=== PATIENT | female | born 1950 | race Caucasian/White ===

== ENCOUNTER 2017-03-24 08:02 | Outpatient (CLI) | payer MEDICARE ==
--- NOTE | 2017-03-24 09:44 | Magnetic Resonance Report ---
MRI BRAIN WITHOUT CONTRAST: 03/24/17 08:02:00 CLINICAL: Headache and memory loss. TECHNIQUE: Axial diffusion, T1, T2, FLAIR, gradient echo T2*, coronal FLAIR and sagittal T1 sequences on a 1.5 Mindy magnet. FINDINGS: The ventricles and sulci are normal for age. No restricted diffusion. No mass or mass effect. No hemorrhage, edema or extra-axial collection. Normal pituitary and optic chiasm. The brainstem and cerebellum are normal. Intact vascular flow voids. Normal sinuses. The orbits, and soft tissues are normal. Normal calvarium and skull base. IMPRESSION: Normal study.
== END 2017-03-24 08:03 | disposition home or self-care (01) ==
LOC: MRI 08:02
PROVIDERS: ATTEND Psychiatry & Neurology Neurology
DX: R41.3 Other amnesia (principal); R51 Headache; I10 Essential (primary) hypertension
CPT/HCPCS: 70551

== ENCOUNTER 2017-09-05 21:23 | Emergency (ER) | payer OTHER, MEDICARE ==
--- NOTE | 2017-09-05 23:06 | Cat Scan Report ---
FINAL REPORT EXAM: CT HEAD/BRAIN WO CON HISTORY: headache COMPARISON: MRI the brain from March 2017. Images are available for review. Report is not available. TECHNIQUE: Axial images obtained skull base through vertex. FINDINGS: No acute intracranial hemorrhage, midline shift or pathologic extra axial fluid collection. Ventricles and cisterns are normal in size and configuration for the patient's age. Schilling-white differentiation preserved. Calvarium grossly intact. Prior cataract surgery. Mild calcification along the carotid siphons. Remote fracture of the medial wall the right orbital rim. Mild mucosal thickening the visualized paranasal sinuses. Mastoid air cells are clear. IMPRESSION: No grossly acute intracranial abnormality.
[2017-09-06] MEDS ORDERED: NORCO 5/325 PO ONE (00:39)
[2017-09-06] MEDS ORDERED: NORCO 5/325 ONE (00:44)
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
[2017-09-06] MEDS ORDERED: ZOFRAN ODT PO ONE (01:08)
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
[2017-09-06 02:56] VITALS: BP 138/70
== END 2017-09-06 02:57 | disposition home or self-care (01) ==
LOC: ED 21:23
DX: G89.11 Acute pain due to trauma (principal); R51 Headache; R07.9 Chest pain, unspecified; R06.02 Shortness of breath; R11.0 Nausea; M79.601 Pain in right arm; E11.9 Type 2 diabetes mellitus without complications; V89.2XXA Person injured in unspecified motor-vehicle accident, traffic, initial encounter; Y93.89 Activity, other specified; Y99.8 Other external cause status; Y92.410 Unspecified street and highway as the place of occurrence of the external cause
CPT/HCPCS: 70450; 71046; 93005; 93010

== ENCOUNTER 2017-10-15 14:46 | Observation (INO) | payer MEDICARE ==
[2017-10-15] MEDS ORDERED: ASPIRIN PO ONE (15:16)
[2017-10-15 15:53] LABS: Basophils % (Auto) 0.3 % (0.0-1.8); Eosinophils # (Auto) 0.1 K/mm3 (0.0-0.4); Eosinophils % (Auto) 1.7 % (0.0-4.3); Hematocrit 42.6 % (30.3-42.9); Hemoglobin 14.5 gm/dl (10.1-14.3); Lymphocytes # (Auto) 1.8 K/mm3 (1.2-5.4); Lymphocytes % (Auto) 31.9 % (13.4-35.0); Mean Corpuscular HGB Conc 34 % (30-34); Mean Corpuscular Hemoglobin 34 pg (28-32); Mean Corpuscular Volume 101 fl (79-97); Monocytes # (Auto) 0.4 K/mm3 (0.0-0.8); Monocytes % (Auto) 7.6 % (0.0-7.3); Platelet Count 188 K/mm3 (140-440); Red Blood Count 4.22 M/mm3 (3.65-5.03); Red Cell Distribution Width 13.1 % (13.2-15.2)
[2017-10-15 16:00] LABS: BUN/Creatinine Ratio 22; Blood Urea Nitrogen 11 mg/dL (7-17); Calcium 9.3 mg/dL (8.4-10.2); Hemolysis Index 5
--- NOTE | 2017-10-15 17:12 | Emergency Department Report ---
ED Chest Pain HPI - General Chief Complaint: Chest Pain Stated Complaint: CHEST PAIN Time Seen by Provider: 10/15/17 16:21 Source: patient Mode of arrival: Ambulatory Limitations: No Limitations - History of Present Illness Initial Comments: Patient is 67 years old female with history of hypertension. Patient presented to the ER complaining of substernal chest pain, pressure does not radiate. Patient stated that pain started this morning. Patient denied any shortness of breath. No history of carotid artery disease before. Chin denied any cough or fever. MD Complaint: chest pain -: This morning Onset: during rest Pain Location: substernal Pain Radiation: none Severity scale (0 -10): 6 Quality: pressure Improves With: nothing Worsens With: nothing - Related Data Home Medications Medication Instructions Recorded Confirmed Last Taken Losartan [Cozaar] 50 mg PO QDAY 05/29/13 08/21/13 Unknown Previous Rx's Medication Instructions Recorded Last Taken Type Acyclovir [Zovirax] 800 mg PO Q12H #35 tab 08/21/13 Unknown Rx HYDROcodone/APAP 7.5-325 [[place] 1 each PO Q6HR PRN #20 tablet 08/21/13 Unknown Rx 7.5/325 mg] Acetaminophen/Codeine [Tylenol 1 tab PO Q6H PRN #12 tab 09/06/17 Unknown Rx /Codeine # 3 tab] Allergies Allergy/AdvReac Type Severity Reaction Status Date / Time No Known Allergies Allergy Verified 08/21/13 11:27 Heart Score - HEART Score History: Moderately suspicious EKG: Non-specific Age: > 65 Risk factors: 1-2 risk factors Troponin: < normal limit HEART Score: 5 - Critical Actions Critical Actions: 4-6 pts:12-16.6% risk of adverse cardiac event. Should be admitted ED Review of Systems ROS: Stated complaint: CHEST PAIN Other details as noted in HPI Comment: All other systems reviewed and negative Constitutional: denies: chills, fever Respiratory: denies: cough, orthopnea, shortness of breath, SOB with exertion, SOB at rest, wheezing Cardiovascular: chest pain. denies: palpitations, dyspnea on exertion, orthopnea, edema, syncope, paroxysmal nocturnal dyspnea Gastrointestinal: denies: abdominal pain, nausea, vomiting, diarrhea, constipation, hematemesis, hematochezia Genitourinary: denies: urgency, dysuria, frequency, hematuria Neurological: denies: headache, weakness, numbness, paresthesias, confusion ED Past Medical Hx - Past Medical History Hx Hypertension: Yes Hx Diabetes: No - Social History Smoking Status: Never Smoker Substance Use Type: None - Medications Home Medications: Home Medications Medication Instructions Recorded Confirmed Last Taken Type Losartan [Cozaar] 50 mg PO QDAY 05/29/13 08/21/13 Unknown History Acyclovir [Zovirax] 800 mg PO Q12H #35 tab 08/21/13 Unknown Rx HYDROcodone/APAP 7.5-325 [[place] 1 each PO Q6HR PRN #20 tablet 08/21/13 Unknown Rx 7.5/325 mg] Acetaminophen/Codeine [Tylenol 1 tab PO Q6H PRN #12 tab 09/06/17 Unknown Rx /Codeine # 3 tab] ED Physical Exam - General Limitations: No Limitations General appearance: alert, in no apparent distress - Head Head exam: Present: atraumatic, normocephalic, normal inspection - Eye Eye exam: Present: normal appearance, PERRL - ENT ENT exam: Present: normal exam, normal orophraynx, mucous membranes moist - Neck Neck exam: Present: normal inspection, full ROM. Absent: tenderness, meningismus - Respiratory Respiratory exam: Present: normal lung sounds bilaterally. Absent: respiratory distress, wheezes, rales, rhonchi, chest wall tenderness, accessory muscle use, decreased breath sounds, prolonged expiratory - Cardiovascular Cardiovascular Exam: Present: regular rate, normal rhythm, normal heart sounds - GI/Abdominal GI/Abdominal exam: Present: soft, normal bowel sounds. Absent: distended, tenderness, guarding, rebound, rigid, organomegaly, mass, bruit, pulsatile mass - Extremities Exam Extremities exam: Present: normal inspection, full ROM, normal capillary refill - Back Exam Back exam: Present: normal inspection, full ROM. Absent: tenderness, CVA tenderness (R), CVA tenderness (L), muscle spasm, paraspinal tenderness, vertebral tenderness, rash noted - Neurological Exam Neurological exam: Present: alert, oriented X3, CN II-XII intact, normal gait - Skin Skin exam: Present: warm, intact, normal color ED Course Vital Signs 10/15/17 10/15/17 10/15/17 14:51 16:05 16:07 Temperature 98.6 F 98.2 F Pulse Rate 68 60 Respiratory 16 17 17 Rate Blood Pressure 117/63 Blood Pressure 110/63 [Left] O2 Sat by Pulse 97 100 100 Oximetry ED Medical Decision Making - Lab Data Result diagrams: 10/15/17 15:28 10/15/17 15:28 - EKG Data -: EKG Interpreted by Me EKG shows normal: sinus rhythm Rate: normal - EKG Data Interpretation: no acute changes - Radiology Data Radiology results: image reviewed interpreted by me: Chest x-ray is unremarkable for acute findings. Critical care attestation.: If time is entered above; I have spent that time in minutes in the direct care of this critically ill patient, excluding procedure time. ED Disposition Clinical Impression: Chest pain Disposition: DC-09 OP ADMIT IP TO THIS HOSP Is pt being admited?: Yes Condition: Stable Instructions: Chest Pain (ED) Referrals: PRIMARY CARE, [Primary Care Provider] - 3-5 Days
--- NOTE | 2017-10-15 17:51 | XRay Report ---
FINAL REPORT EXAM: XR CHEST 1V AP HISTORY: chest pain TECHNIQUE: AP portable view of the chest. PRIORS: 09/05/2017 FINDINGS: The cardiomediastinal silhouette appears normal. The lungs are clear. The bones and soft tissues are unremarkable. IMPRESSION: No evidence of acute cardiopulmonary disease.
[2017-10-15] MEDS ORDERED: ASPIRIN ONE (19:04)
[2017-10-15] MEDS ORDERED: PERCOCET 5/325 PO PRN (19:59)
[2017-10-15] MEDS ORDERED: DILAUDID IV PRN (19:59)
[2017-10-15] MEDS ORDERED: MORPHINE IV PRN (19:59)
[2017-10-15] MEDS ORDERED: TYLENOL PO PRN (19:59)
[2017-10-15] MEDS ORDERED: SODIUM CHLORIDE FLUSH SYRINGE 10 ML IV PRN (19:59)
[2017-10-15] MEDS ORDERED: ZOFRAN IV PRN (19:59)
[2017-10-15] MEDS ORDERED: AMBIEN PO PRN (19:59)
[2017-10-15] MEDS ORDERED: NON-FORMULARY (Losartan [Cozaar] 100 MG) PO SCH (20:00)
--- NOTE | 2017-10-15 20:09 | History and Physical Report ---
History of Present Illness Date of examination: 10/15/17 Date of admission: 10/15/17 17:17 Chief complaint: Chief complaint: Left-sided chest pain since a.m.--sudden onset. History of present illness: History of Present Illness: 67-year-old female with history of hypertension comes in for retrosternal chest pain off and on since the morning. Sudden onset. No place to left-sided chest. No radiation. No shortness of breath. No diaphoresis. No recent travel. Chest pain is about 6 on a scale of 1-10 dull in character. No exacerbating or relieving factors. No palpitations. Intermittent in nature. Past Medical History Hx Hypertension: Yes Hx Diabetes: No Social History Smoking Status: Never Smoker Substance Use Type: None Surgical history None Family history Hypertension Review of Systems ROS: Stated complaint: CHEST PAIN Other details as noted in HPI Comment: All other systems reviewed and negative Constitutional: denies: chills, fever Respiratory: denies: cough, orthopnea, shortness of breath, SOB with exertion, SOB at rest, wheezing Cardiovascular: chest pain. denies: palpitations, dyspnea on exertion, orthopnea, edema, syncope, paroxysmal nocturnal dyspnea Gastrointestinal: denies: abdominal pain, nausea, vomiting, diarrhea, constipation, hematemesis, hematochezia Genitourinary: denies: urgency, dysuria, frequency, hematuria Neurological: denies: headache, weakness, numbness, paresthesias, confusion 14 point review of systems done--- otherwise negative - Medications Home Medications: Home Medications Medication Instructions Recorded Confirmed Last Taken Type Losartan [Cozaar] 50 mg PO QDAY 05/29/13 08/21/13 Unknown History Acyclovir [Zovirax] 800 mg PO Q12H #35 tab 08/21/13 Unknown Rx HYDROcodone/APAP 7.5-325 [[place] 1 each PO Q6HR PRN #20 tablet 08/21/13 Unknown Rx 7.5/325 mg] Acetaminophen/Codeine [Tylenol 1 tab PO Q6H PRN #12 tab 09/06/17 Unknown Rx /Codeine # 3 tab] Medications and Allergies Allergies Allergy/AdvReac Type Severity Reaction Status Date / Time No Known Allergies Allergy Verified 08/21/13 11:27 Home Medications Medication Instructions Recorded Confirmed Last Taken Type Cetirizine HCl [Allergy Relief] 10 mg PO DAILY 10/15/17 10/15/17 Unknown History Losartan [Cozaar] 100 mg PO QDAY 10/15/17 10/15/17 10/15/17 History Active Meds: Active Medications Acetaminophen (Tylenol) 650 mg PO Q4H PRN PRN Reason: Pain MILD(1-3)/Fever >100.5/GARCIA Famotidine (Pepcid) 20 mg PO BID CHER Hydromorphone HCl (Dilaudid) 0.5 mg IV Q3H PRN PRN Reason: Pain , Severe (7-10) Miscellaneous Medication (Cetirizine Hcl [Allergy Relief]) 10 mg PO DAILY CHER Miscellaneous Medication (Losartan [Cozaar]) 100 mg PO QDAY CHER Morphine Sulfate (Morphine) 2 mg IV Q4H PRN PRN Reason: Pain, Moderate (4-6) Ondansetron HCl (Zofran) 4 mg IV Q8H PRN PRN Reason: Nausea And Vomiting Oxycodone/Acetaminophen (Percocet 5/325) 1 tab PO Q6H PRN PRN Reason: Pain, Moderate (4-6) Sodium Chloride (Sodium Chloride Flush Syringe 10 Ml) 10 ml IV BID CHER Sodium Chloride (Sodium Chloride Flush Syringe 10 Ml) 10 ml IV PRN PRN PRN Reason: LINE FLUSH Zolpidem Tartrate (Ambien) 5 mg PO QHS PRN PRN Reason: Insomnia Exam - Constitutional Vitals: Temp Pulse Resp BP Pulse Ox 97.9 F 58 L 22 91/67 98 10/15/17 19:15 10/15/17 19:15 10/15/17 19:15 10/15/17 19:15 10/15/17 19:15 Results - Labs CBC & Chem 7: 10/15/17 15:28 10/15/17 15:28 Labs: Laboratory Last Values WBC 5.8 K/mm3 (4.5-11.0) 10/15/17 15:28 RBC 4.22 M/mm3 (3.65-5.03) 10/15/17 15:28 Hgb 14.5 gm/dl (10.1-14.3) H 10/15/17 15:28 Hct 42.6 % (30.3-42.9) 10/15/17 15:28 MCV 101 fl (79-97) H 10/15/17 15: MCH 34 pg (28-32) H 10/15/17 15: MCHC 34 % (30-34) 10/15/17 15: RDW 13.1 % (13.2-15.2) L 10/15/17 15: Plt Count 188 K/mm3 (140-440) 10/15/17 15: Lymph % (Auto) 31.9 % (13.4-35.0) 10/15/17 15:28 [place] % (Auto) 7.6 % (0.0-7.3) H 10/15/17 15: Eos % (Auto) 1.7 % (0.0-4.3) 10/15/17: Baso % (Auto) 0.3 % (0.0-1.8) 10/15/17 15: Lymph # 1.8 K/mm3 (1.2-5.4) 10/15/17 15: [place] # 0.4 K/mm3 (0.0-0.8) 10/15/17 15: Eos # 0.1 K/mm3 (0.0-0.4) 10/15/17 15: Baso # 0.0 K/mm3 (0.0-0.1) 10/15/17 15: Seg Neutrophils % 58.5 % (40.0-70.0) 10/15/17 15: Seg Neutrophils # 3.4 K/mm3 (1.8-7.7) 10/15/17 15: Sodium 141 mmol/L (137-145) 10/15/17 15:28 Potassium 3.8 mmol/L (3.6-5.0) 10/15/17 15: Chloride 101.7 mmol/L (98-107) 10/15/17 15: Carbon Dioxide 30 mmol/L (22-30) 10/15/17 15: Anion Gap 13 mmol/L 10/15/17 15:28 BUN 11 mg/dL (7-17) 10/15/17 15:28 Creatinine 0.5 mg/dL (0.7-1.2) L 10/15/17 15:28 Estimated GFR > 60 ml/min 10/15/17 15:28 BUN/Creatinine Ratio 22 % 10/15/17 15:28 Glucose 100 mg/dL (65-100) 10/15/17 15:28 Calcium 9.3 mg/dL (8.4-10.2) 10/15/17 15:28 Troponin T < 0.010 ng/mL (0.00-0.029) 10/15/17 19:01 Short CBC 10/15/17 Range/Units 15:28 WBC 5.8 (4.5-11.0) K/mm3 Hgb 14.5 H (10.1-14.3) gm/dl Hct 42.6 (30.3-42.9) % Plt Count 188 (140-440) K/mm3 BMP 10/15/17 15:28 Sodium 141 Potassium 3.8 Chloride 101.7 Carbon Dioxide 30 BUN 11 Creatinine 0.5 L Glucose 100 Calcium 9.3 Cardiac Enzymes 10/15/17 10/15/17 Range/Units 15:28 19:01 Troponin T < 0.010 < 0.010 (0.00-0.029) ng/mL - Imaging and Cardiology EKG: report reviewed (sinus rhythm heart rate is [address]-T wave changes EKG interpreted by me) Assessment and Plan Advance Directives: Yes (full code) VTE prophylaxis?: Chemical Plan of care discussed with patient/family: Yes - Patient Problems (1) Acute coronary syndrome Current Visit: Yes Status: Acute Plan to address problem: Patient did get serial troponins echocardiogram and Lexiscan in the morning. Cardiology consult requested. (2) Hypertension Current Visit: Yes Status: Chronic Qualifiers: Hypertension type: essential hypertension Qualified Code(s): I10 - Essential (primary) hypertension Plan to address problem: Continue losartan (3) DVT prophylaxis Current Visit: Yes Status: Acute Plan to address problem: Continue heparin subcutaneously 5000 units every 12
[2017-10-15] MEDS: PEPCID PO SCH (22:00)
[2017-10-15] MEDS: SODIUM CHLORIDE FLUSH SYRINGE 10 ML IV SCH (22:00)
[2017-10-16 02:43] LABS: Basophils % (Auto) 0.4 % (0.0-1.8); Eosinophils # (Auto) 0.2 K/mm3 (0.0-0.4); Eosinophils % (Auto) 2.4 % (0.0-4.3); Hematocrit 39.1 % (30.3-42.9); Hemoglobin 13.7 gm/dl (10.1-14.3); Lymphocytes # (Auto) 2.5 K/mm3 (1.2-5.4); Lymphocytes % (Auto) 37.5 % (13.4-35.0); Mean Corpuscular HGB Conc 35 % (30-34); Mean Corpuscular Hemoglobin 35 pg (28-32); Mean Corpuscular Volume 101 fl (79-97); Monocytes # (Auto) 0.6 K/mm3 (0.0-0.8); Monocytes % (Auto) 9.2 % (0.0-7.3); Platelet Count 158 K/mm3 (140-440); Red Blood Count 3.88 M/mm3 (3.65-5.03); Red Cell Distribution Width 13.2 % (13.2-15.2)
[2017-10-16 03:34] LABS: Alanine Aminotransferase 27 units/L (7-56); BUN/Creatinine Ratio 33; Blood Urea Nitrogen 13 mg/dL (7-17); Calcium 8.7 mg/dL (8.4-10.2); Hemolysis Index 4
[2017-10-16] MEDS ORDERED: LEXISCAN IV ONE ×2 (08:44→08:46)
[2017-10-16] MEDS ORDERED: CLARITIN PO SCH (10:00)
[2017-10-16] MEDS ORDERED: NON-FORMULARY (Cetirizine Hcl [Allergy Relief] 10 MG) PO SCH (10:00)
[2017-10-16] MEDS ORDERED: COZAAR PO SCH (10:00)
[2017-10-16] MEDS: PEPCID PO SCH (10:43)
[2017-10-16] MEDS: SODIUM CHLORIDE FLUSH SYRINGE 10 ML IV SCH (10:43)
--- NOTE | 2017-10-16 10:50 | Consultation ---
History of Present Illness Consult date: 10/16/17 Consult reason: chest pain History of present illness: Patient is presenting with atypical chest pain. She has a history of hypertension. ECG showing no ischemic changes and troponins are negative. MPI today showing no ischemia with LVEF 82%. N events recorded on tele. CXR is normal. BP 117/62 on admission. Past History Past Medical History: hypertension Past Surgical History: No surgical history Social history: no significant social history Family history: no significant family history Medications and Allergies Allergies Allergy/AdvReac Type Severity Reaction Status Date / Time No Known Allergies Allergy Verified 08/21/13 11:27 Home Medications Medication Instructions Recorded Confirmed Last Taken Type Cetirizine HCl [Allergy Relief] 10 mg PO DAILY 10/15/17 10/15/17 Unknown History Losartan [Cozaar] 100 mg PO QDAY 10/15/17 10/15/17 10/15/17 History Active Meds: Active Medications Acetaminophen (Tylenol) 650 mg PO Q4H PRN PRN Reason: Pain MILD(1-3)/Fever >100.5/GARCIA Famotidine (Pepcid) 20 mg PO BID [facility] Last Admin: 10/16/17 10:43 Dose: 20 mg Hydromorphone HCl (Dilaudid) 0.5 mg IV Q3H PRN PRN Reason: Pain , Severe (7-10) Loratadine (Claritin) 10 mg PO DAILY [facility] Last Admin: 10/16/17 10:43 Dose: 10 mg Losartan Potassium (Cozaar) 100 mg PO QDAY [facility] Last Admin: 10/16/17 10:43 Dose: 100 mg Morphine Sulfate (Morphine) 2 mg IV Q4H PRN PRN Reason: Pain, Moderate (4-6) Ondansetron HCl (Zofran) 4 mg IV Q8H PRN PRN Reason: Nausea And Vomiting Oxycodone/Acetaminophen (Percocet 5/325) 1 tab PO Q6H PRN PRN Reason: Pain, Moderate (4-6) Sodium Chloride (Sodium Chloride Flush Syringe 10 Ml) 10 ml IV BID [facility] Last Admin: 10/16/17 10:43 Dose: 10 ml Sodium Chloride (Sodium Chloride Flush Syringe 10 Ml) 10 ml IV PRN PRN PRN Reason: LINE FLUSH Zolpidem Tartrate (Ambien) 5 mg PO QHS PRN PRN Reason: Insomnia Review of Systems All systems: negative Physical Examination Vital Signs Temp Pulse Resp BP Pulse Ox 98.6 F 68 16 117/63 97 10/15/17 14:51 10/15/17 14:51 10/15/17 14:51 10/15/17 14:51 10/15/17 14:51 General appearance: no acute distress HEENT: Positive: PERRL Neck: Positive: neck supple Cardiac: Positive: Reg Rate and Rhythm Lungs: Positive: Normal Exam Abdomen: Positive: Soft Extremities: Absent: edema Results 10/16/17 02:09 10/16/17 02:09 Cardiac Enzymes 10/16/17 Range/Units 02:09 AST 21 (5-40) units/L CBC 10/15/17 10/16/17 Range/Units 15:28 02:09 WBC 5.8 6.6 (4.5-11.0) K/mm3 RBC 4.22 3.88 (3.65-5.03) M/mm3 Hgb 14.5 H 13.7 (10.1-14.3) gm/dl Hct 42.6 39.1 (30.3-42.9) % Plt Count 188 158 (140-440) K/mm3 Lymph # 1.8 2.5 (1.2-5.4) K/mm3 [place] # 0.4 0.6 (0.0-0.8) K/mm3 Eos # 0.1 0.2 (0.0-0.4) K/mm3 Baso # 0.0 0.0 (0.0-0.1) K/mm3 Comprehensive Metabolic Panel 10/15/17 10/16/17 Range/Units 15:28 02:09 Sodium 141 138 (137-145) mmol/L Potassium 3.8 3.4 L (3.6-5.0) mmol/L Chloride 101.7 100.5 (98-107) mmol/L Carbon Dioxide 30 23 D (22-30) mmol/L BUN 11 13 (7-17) mg/dL Creatinine 0.5 L 0.4 L (0.7-1.2) mg/dL Glucose 100 111 H (65-100) mg/dL Calcium 9.3 8.7 (8.4-10.2) mg/dL AST 21 (5-40) units/L ALT 27 (7-56) units/L Alkaline Phosphatase 66 (35-129) units/L Total Protein 6.9 (6.3-8.2) g/dL Albumin 4.0 (3.9-5) g/dL EKG interpretations - Telemetry EKG Rhythm: Sinus Rhythm Assessment and Plan Atypical chest pain No ischemic ECG changes Negative troponin Normal CXR Normal MPI Normal LVEF Systemic Hypertension Controlled Recommendations: No further cardiac work-up is needed
[2017-10-16 13:38] VITALS: BP 127/70
--- NOTE | 2017-10-16 15:06 | Discharge Summary ---
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 Hypertension Disposition: DC- TO HOME OR SELFCARE Time spent for discharge: 32 min Core Measure Documentation - Palliative Care Palliative Care/ Comfort Measures: Not Applicable - Core Measures Any of the following diagnoses?: none - VTE Discharge Requirements Deep Vein Thrombosis/Pulmonary Embolism Present on Admission: No Has pt received <5 days of overlap therapy or INR<2.0: No Anticoagulant overlap therapy prescribed at discharge: No Contraindication No Overlap Therapy order at DC: Not Indicated Exam - Physical Exam Narrative exam: GEN: WDWN, NAD, Awake, Alert, Orientated HEENT: NCAT, EOMI, PERRL, OP Clear NECK: supple, no adenopathy, no thyromegaly, no JVD CVS/HEART: RRR, normal S1S2, pulses present bilaterally CHEST/LUNGS: CTA B, Symmetrical chest expansion, good air entry bilaterally, reproducible with touch GI/Abdomen: soft, NTND, good bowel sounds, no guarding or rebound /Bladder: no suprapubic tenderness, no CVA or paraspinal tenderness EXT/Skin: no c/c/e, no obvious rash MSK: FROM x 4 Neuro: CN 2-12 grossly intact, no new focal deficits Psych: calm - Constitutional Vitals: Temp Pulse Resp BP Pulse Ox 98.2 F 88 16 127/70 94 10/16/17 04:20 10/16/17 09:20 10/16/17 04:20 10/16/17 09:20 10/16/17 04:20 Plan Activity: other (no strenous activities until cleared by pcp) Diet: low salt Follow up with: PRIMARY CARE, [Primary Care Provider] - 3-5 Days
--- NOTE | 2017-10-17 11:06 | Treadmill Report ---
ORDERING PHYSICIAN: Dr. Mcfadden. INDICATION: Chest pain. FINDINGS: There is no scintigraphic evidence of myocardial ischemia. The left ventricle is normal in size and systolic function. The left ventricular ejection fraction is measured at ____. Normal wall motion and wall thickening is noted on gated imaging. CONCLUSION: Normal perfusion scan. JOB# [id number] NICOLE/KENYETTA
== END 2017-10-16 16:01 | disposition home or self-care (01) ==
LOC: ED 14:46 → 4A 17:17 → INTOOBSV 17:17 → 4A 18:37
PROVIDERS: ADMIT Internal Medicine; ATTEND Internal Medicine
DX: I24.9 Acute ischemic heart disease, unspecified (principal); I10 Essential (primary) hypertension
CPT/HCPCS: 36415; 71045; 78452; 80048; 80053; 83036; 84484; 85025; 93005; 93010; 93017; 99285; A9502; G0378; J2785